=== PATIENT | male | born 1950 | race African-American/Black ===

== ENCOUNTER 2023-12-06 20:18 | Emergency (ER) | payer MEDICARE, BC, SELFPAY ==
[2023-12-06 20:31] VITALS: BP 139/80
[2023-12-06 20:40] LABS: Glucose - Point of Care 152 mg/dl (70-99)
[2023-12-06 22:53] VITALS: BMI 31.6
--- NOTE | 2023-12-06 23:14 | ED.SKININJ ---
HPI-Injury
<ANTELMO England - Last Filed: 12/07/23 05:06>
General
Chief Complaint: Skin Problem
Source: patient and family
Exam Limitations: none
Time Seen by Provider: 12/06/23 23:08
Travel History
Have you had any contact with someone who has COVID-19?: No
Do you have any symptoms of coronavirus? Fever > 100 degrees, chills, cough, shortness of breath, sore throat, loss of taste or smell, muscle aches, or headache?: No
History of Present Illness-Injury
Initial Injury comments:
This is a 73 yo male PMH IDDM presenting with his family for a laceration sustained 3 hours ago. He states his R 5th toe made contact with the corner of his bed. He was evaluated at the urgent care prior to arrival but was recommended to come to the
ED because of the depth and location of the laceration.
Review of Systems
<ANTELMO England - Last Filed: 12/07/23 05:06>
Review of Systems
Allergies reviewed?: Yes
Constitutional: Reports no symptoms
Respiratory: Reports no symptoms
Cardiac: Reports no symptoms
ABD/GI: Reports no symptoms
Skin: Reports other (laceration)
Skin Exam
<ANTELMO England - Last Filed: 12/07/23 05:06>
Laceration
Plantar surface of 5th metatarsal phalangeal joint line:
Length in cm: 1.5
Orientation: horizontal
Any active bleeding?: low grade venous oozing
Distal skin color and temperature: normal-warm & good color
Normal distal neurovascular exam: Yes
Range of motion: full
Phy Exam
<ANTELMO England - Last Filed: 12/07/23 05:06>
General Physical Exam
General Presentation: well appearing and no apparent distress
Course
<ANTELMO England - Last Filed: 12/07/23 05:06>
Orders/Labs/Results
Orders:
Orders
12/06/23 23:46
Tetanus/Diphth/Acelpertussis [Adacel] 0.5 ml IM .ONCE ONE
Abnormal Lab Results
12/06/23
20:38
POC Glucose 152 H mg/dl
(70-99)
Vital Signs
Initial and Last Documented VS:
Initial Vital Signs
Temp Pulse Resp BP Pulse Ox
98.6 F 82 18 139/80 96
12/06/23 20:31 12/06/23 20:31 12/06/23 20:31 12/06/23 20:31 12/06/23 20:31
Last Documented Vital Signs
Temp Pulse Resp BP Pulse Ox
98.6 F 82 18 139/80 96
12/06/23 20:31 12/06/23 20:31 12/06/23 20:31 12/06/23 20:31 12/06/23 20:31
<Frandy Gregorio DO - Last Filed: 12/07/23 00:18>
Orders/Labs/Results
Orders:
Orders
12/06/23 23:46
Tetanus/Diphth/Acelpertussis [Adacel] 0.5 ml IM .ONCE ONE
Abnormal Lab Results
12/06/23
20:38
POC Glucose 152 H mg/dl
(70-99)
Vital Signs
Initial and Last Documented VS:
Initial Vital Signs
Temp Pulse Resp BP Pulse Ox
98.6 F 82 18 139/80 96
12/06/23 20:31 12/06/23 20:31 12/06/23 20:31 12/06/23 20:31 12/06/23 20:31
Last Documented Vital Signs
Temp Pulse Resp BP Pulse Ox
98.6 F 82 18 139/80 96
12/06/23 20:31 12/06/23 20:31 12/06/23 20:31 12/06/23 20:31 12/06/23 20:31
Procedures
<Frandy Gregorio DO - Last Filed: 12/07/23 00:18>
Laceration Closure
Right Fifth Toe:
Status of Wound: clean
Size of Wound in cm: 1.5
Description of Wound Edges: sharp and flap-well vascularized
Preparation: cleaned with soap & water
Anesthesia: 1% Lidocaine
Revision/Debridement: routine- no revision
Wound exploration: explored to base- no FB
Type of Closure: single layer closure
Skin Closure Material: 5-0 nylon
Number of sutures: 8
Additional information:
Patient tolerated procedure well with no immediate adverse effects. Tetanus shot updated
<ANTELMO England - Last Filed: 12/07/23 05:06>
MDM/Problems Addressed
Differential Diagnosis Includes:
Laceration
MDM/Problems Addressed:
Wound closed with sutures with no complications
<ANTELMO England - Last Filed: 12/07/23 05:06>
*Critical Care Note
Total Time (30-74mins, 75-104mins- exclusive of procedures): Not Applicable
ED Attending Note
<ANTELMO England - Last Filed: 12/07/23 05:06>
-
Portions of this chart may have been created with voice recognition software.� Occasional wrong word or��sound alike� substitutions may have occurred due to the inherent limitations of voice recognition software.
<Frandy Gregorio DO - Last Filed: 12/07/23 00:18>
ED Attending Note
Patient seen and examined by attending physician: Yes
I performed the substantive portion of visit, reviewed & personally made and approve the management plan that is documented in note by myself or DEVEN.: Yes
ED Attending Note:
Pleasant 73-year-old male that presents with right small toe laceration. He hit the bottom of his foot on the corner of his bed. This happened approximate 3 hours ago last tetanus status is unknown. Initially they were having a hard time stopping
the bleeding but they were able to get it controlled. Denies any other injury. Is ambulatory. No suspicion for foreign body. Patient was seen in conjunction with the PA student. I have reviewed and agree with the history and treatment plan
presented. On my independent physical exam, patient is awake, alert, and oriented x3 minimal acute distress. On the bottom of the fifth digit on the right there is a 1.5 cm linear laceration.
Discharge Plan
Departure
Patient Disposition: Home (Routine Discharge)
Date of Disposition: 12/07/23
Time of Disposition: 00:16
Patient with high blood pressure during this ER visit?: Yes
Condition: Good
Discharge Problem:
Laceration of toe
Instructions: Wound Care (DC), BLOOD PRESSURE, Laceration
Referrals:
PRIVATE,PHYSICIAN [Family Provider] -
Activity Restrictions/Additional Instructions:
Congratulations on your granddaughters graduation!
Sutures can be removed in 5 to 7 days. This can be done by a senior writer back in [place].
Please do not weight-bear if possible. Keep wound warm and dry.
Your tetanus shot was updated.
It was a pleasure meeting you and taking part in your care. We hope for your continued healing and wellness.
Please read discharge instructions in their entirety. However, they are for general education and may not describe your exact diagnosis at discharge. Information on your ER visit and medical conditions were discussed with you along with appropriate
follow up information...
If indicated, please take your medications as instructed and indicated on discharge paperwork.
Please schedule a follow up appointment as directed. Call to schedule an appointment
Please return to the emergency department with ANY change in, persisting, or worsening of symptoms. If any of your symptoms do not improve, or persist, or become more severe within 6-12 hours, please return to the emergency department for further
care.
Please return to the emergency department if you develop a headache, neck pain/stiffness, fever greater than 100.4F, chest pain, shortness of breath, persistent nausea, vomiting, slurred speech, difficulty walking, numbness/tingling, weakness, signs
of infection or any other symptoms that are worrisome to you.
If you have any questions or concerns please do not hesitate to call the Hospital at or E-mail me directly at [email or web address]
Interventions
Interventions:
*Risk Screen - Suicide Last Done: 12/06/23 20:31
*General Assessment Last Done: 12/06/23 20:31
*Neglect/Abuse Screening Last Done: 12/06/23 20:31
ED- Fall Risk Assessment Last Done: 12/06/23 22:54
*Nursing Disposition Last Done: 12/07/23 00:39
ED-Skin Assessment Last Done: 12/06/23 22:54
Discharge Date and Time
Discharge Date/Time: 12/07/23 00:40
Print Language: MALAGASY
[2023-12-07] MEDS: ADACEL 0.5 ML IM (00:28)
== END 2023-12-07 00:40 | disposition home or self-care (01) ==
LOC: EMR 20:18
PROVIDERS: EMERGENCY PHYSICIAN Student in an Organized Health Care Education/Training Program
DX: S91.114A Laceration without foreign body of right lesser toe(s) without damage to nail, initial encounter (principal); W22.03XA Walked into furniture, initial encounter; Z23 Encounter for immunization; E11.9 Type 2 diabetes mellitus without complications
CPT/HCPCS: 99282; 12001; 90471; 82962; 90715